=== PATIENT | male | born 1965 | race Caucasian/White ===

== ENCOUNTER → 2020-06-10 11:00 | Day surgery (SDC) | payer BC | END | disposition home or self-care (01) | LOC: D.RAD 11:00 | PROVIDERS: ATTEND Orthopaedic Surgery | DX: M16.12 Unilateral primary osteoarthritis, left hip (principal); Z53.9 Procedure and treatment not carried out, unspecified reason ==

== ENCOUNTER → 2020-06-14 14:00 | Day surgery (SDC) | payer BC ==
--- NOTE | ~2020-06-14 | HEMODYNAMI ---
PATIENT:DEA RIVAS MEDICAL RECORD: [id number] : 67 [id number] ADMISSION DATE: 06/14/20 Generatedon:114:05 Patient name: DEA RIVAS Patient #: [id number] SSN: : 1965 Date of study: 06/14/2020 Page: Of Hemodynamic Procedure Report Patient Data Patient Demographics Procedure consent was obtained First Name: DEA Gender: Male Last Name: EVELYN : 1965 Patient #: [id number] Age: 54 year(s) Race: Unknown Additional ID: [id number] Contact details [address]: [address] [place] [address] State: [place] City: [facility] Zip code: [address] Admission Admission Data Admission Date: 06/14/2020 Admission Time: 11:00 Procedure Procedure Types Cath Procedure Peripheral Cath Diagnostic Procedure Miscellaneous Aspiration/Injection (Joint) Procedure Description Procedure Date Procedure Date: 06/14/2020 Procedure Start Time: 13:57 Procedure End Time: 14:04 Procedure Staff Name Function Mahad Moreno RT Monitor Carla Dwyer MD Performing Physician CORRY FARAH RT Monitor Procedure Data Cath Procedure Fluoroscopy Diagnostic fluoroscopy Total fluoroscopy Time: 0.6 time: 0.6 min min Hemodynamics Rest Pre Cath Intra NCS Post Cath Procedure Log Time Note 13:52:09 Mahad Moreno RT (R) (CV) sent for patient. Start room use. 13:52:19 Patient received from Other to IR Alert and oriented. Tansferred to table in Supine position. 13:52:23 Signed procedure consent form obtained from patient. 13:52:24 Correct patient and procedure confirmed by team. 13:52:26 - 13:52:26 Full Disclosure recording started 13:52:29 Pre-procedure instructions explained to patient. 13:52:30 Pre-op teaching completed and patient verbalized understanding. 13:52:36 Is patient on blood thinner?No 13:52:48 Left Hip was prepped with betadine and draped in sterile fashion. 13:55:41 Physician arrived 13:55:42 Final Timeout: patient, procedure, and site verified with staff and physician. All members of the team are in agreement. 13:55:42 --------ALL STOP TIME OUT------ 13:55:58 Left groin site verified by team. 13:56:59 Procedure started. 13:57:26 Local anesthetic to Left Hip with Lidocaine 1% by Carla Dwyer MD.INITIAL ACCESS ONLY 14:03:03 Procedure ended.(Physican Out) 14:03:22 Fluoroscopy time 00.60 minutes. 14:03:26 Dose Area Product 22 mGy/cm. 14:03:38 Post-op/insertion site Left Hip area dressed using a Bandaid. 14:04:00 SAFE-T PLUS MYELOGRAM TRAY opened to sterile field. 14:04:20 Procedure and supply charges have been captured, reviewed, submitted an d are correct. 14:04:22 Full Disclosure recording stopped 14:04:22 Procedure ended. Device Usage Item Name Manufacture Quantity Catalog Hospital Part Current Minimal Lot# / Number Charge Number Stock Stock Serial# Code SAFE-T [employer] 2 [id number] PLUS MYELOGRAM TRAY Signature Audit Savage Stage Time Signature Unsigned Intra-Procedure 06/14/2020 CORRY FARAH RT 2:05:53 PM (R) [id number] [place] [address]
== END | disposition home or self-care (01) ==
LOC: D.RAD 11:00
PROVIDERS: ATTEND Orthopaedic Surgery
DX: M25.552 Pain in left hip (principal); M16.12 Unilateral primary osteoarthritis, left hip

== ENCOUNTER 2020-07-18 08:00 | Day surgery (SDC) | payer BC | END 2020-07-18 08:01 | disposition home or self-care (01) | LOC: D.OPS 08:00 | PROVIDERS: ATTEND Internal Medicine Gastroenterology | DX: Z12.11 Encounter for screening for malignant neoplasm of colon (principal); Z80.0 Family history of malignant neoplasm of digestive organs; Z53.20 Procedure and treatment not carried out because of patient's decision for unspecified reasons ==

== ENCOUNTER 2020-07-22 07:37 | Outpatient (CLI) | payer BC ==
[~2020-07-22] VITALS: Ht 175.3 cm; Wt 136.4 kg
[2020-07-22 07:53] VITALS: Ht 175.3 cm; Wt 136.4 kg
--- NOTE | 2020-07-22 08:24 | NUR ---
2 UNITS OF BLOOD REMOVED FOR THERAPEUTIC PHLEBOTOMY. 1ST UNIT STARTED @ 0755 COMPLETED @ 0805. TOLERATED WELL POST VITAL SIGNS 145/79, 65, 16, 94%. 2ND UNIT STARTED @ 0810 FINISHED @ 0818. POST OP VITALS 139/86, 69, 16, 96%.
[2020-07-22 08:42] VITALS: BP 127/73
== END 2020-07-22 08:38 | disposition home or self-care (01) ==
LOC: D.OPS 07:37
PROVIDERS: ATTEND Family Medicine
DX: D45 Polycythemia vera (principal)